=== PATIENT | male | born 1995 | race Two or more races ===

== ENCOUNTER 2018-06-04 22:34 | Emergency (ER) | payer SELFPAY ==
[~2018-06-04] VITALS: Ht 167.6 cm; Wt 67.1 kg
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
[2018-06-04] MEDS ORDERED: HYDROcodone/APAP 5/325MG 1 TAB TABLET PO ONE (23:00)
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
[2018-06-04] MEDS ORDERED: HYDR-3164 PO (23:46)
[2018-06-04] MEDS ORDERED: IBUP-1007 PO (23:46)
[2018-06-05 00:02] VITALS: BP 136/101
== END 2018-06-05 00:05 | disposition home or self-care (01) ==
LOC: ER 22:34 → EEVIPCON 22:34 → ER 06-05 00:05
DX: S00.01XA Abrasion of scalp, initial encounter (principal); Y00.XXXA Assault by blunt object, initial encounter; Y93.89 Activity, other specified; Y92.89 Other specified places as the place of occurrence of the external cause; Y99.8 Other external cause status
CPT/HCPCS: 70450; 70486; 72125; 99284